=== PATIENT | female | born 1955 | race Caucasian/White ===

== ENCOUNTER → 2017-08-09 | Outpatient (CLI) | payer BC, OTHER ==
[~2017-08-09] MED LIST: CYM30 PO; SIMV20TA2 PO; TRAM-10 PO
[2017-08-09 18:48] LABS: BASO % 0.3 %; BASO ABS # 0.01 K/uL (0-0.2); EOS % 4.4 %; EOS ABS # 0.17 K/uL (0-0.5); HEMATOCRIT 38.6 % (37-47); HEMOGLOBIN 12.8 g/dL (12.0-16.0); LYMPH % 39.7 %; LYMPH ABS # 1.52 K/uL (1.2-3.4); MEAN CELL VOLUME 91.3 fL (80-100); MEAN CORPUSCULAR HEMOGLOBIN 30.3 pg (25-34); MEAN CORPUSCULAR HGB CONC 33.2 g/dl (32-36); MEAN PLATELET VOLUME 10.5 fL (7.4-10.4); MONO % 9.1 %; MONO ABS # 0.35 K/uL (0.11-0.59); NEUT % 46.5 %; NEUT ABS # 1.78 K/uL (1.4-6.5); PLATELET COUNT 282 K/uL (130-400); RED CELL DISTRIBUTION WIDTH CV 13.1 % (11.5-14.5); RED CELL DISTRIBUTION WIDTH SD 43.6 fL (36.4-46.3); WHITE BLOOD COUNT 3.83 K/uL (4.8-10.8)
[2017-08-09 20:52] LABS: ALBUMIN 4.2 gm/dl (3.4-5.0); ALKALINE PHOSPHATASE 63 U/L (45-117); ALT/SGPT 26 U/L (12-78); AST/SGOT 19 U/L (15-37); BLOOD UREA NITROGEN 12 mg/dl (7-18); CALCIUM 9.7 mg/dl (8.5-10.1); CARBON DIOXIDE 29 mmol/L (21-32); CHOLESTEROL 169 mg/dl (0-200); CREATININE 0.69 mg/dl (0.60-1.20); GLUCOSE 86 mg/dl (70-99); LDL CHOLESTEROL CALCULATED 80 mg/dl; SODIUM 136 mmol/L (136-145)
== END | disposition home or self-care (01) ==
LOC: C.LABSPEC 17:50
PROVIDERS: ATTEND Family Medicine
DX: R53.83 Other fatigue (principal); E78.2 Mixed hyperlipidemia; I10 Essential (primary) hypertension

== ENCOUNTER 2022-06-20 09:15 | Observation (INO) ==
--- NOTE | 2022-06-20 09:43 | History & Physical Report ---
Date of Service June 20, 2022 Assessment & Plan (1) Post-polypectomy bleeding: Plan: Proceed with colonoscopy History of Present Illness Chief Complaint: Post-polypectomy bleeding Primary Care Provider: Adilson Betancourt DO 66 yo CF who presents for colonoscopy secondary to post-polypectomy bleeding. Allergies Allergy/AdvReac Type Severity Reaction Status Date / Time fluconazole [From Diflucan] Allergy Mild Rash Verified 06/20/22 09:30 metal Allergy Mild Rash Uncoded 06/20/22 09:30 Home Medications Medication Instructions Recorded Confirmed Type duloxetine 30 mg capsule,delayed 30 mg PO QAM 06/14/22 06/20/22 History release estradiol 10 mcg vaginal tablet 10 mcg vaginal UD 06/14/22 06/20/22 History (Vagifem) levothyroxine 25 mcg tablet 25 mcg PO QAM 06/14/22 06/20/22 History losartan 50 mg tablet 50 mg PO QAM 06/14/22 06/20/22 History rosuvastatin 20 mg tablet 20 mg PO QPM 06/14/22 06/20/22 History ciprofloxacin HCl 500 mg tablet 500 mg PO BID #10 tabs 06/19/22 06/20/22 Rx (Cipro) metronidazole 500 mg tablet 500 mg PO TID #15 tabs 06/19/22 06/20/22 Rx Past Med/Surg History Medical History Depression History of COVID-2020 sinus congestion, no hospitalization, no current issues Hyperlipidemia Hypertension Hypothyroidism Surgical History History of carpal tunnel release of both wrists History of esophagogastroduodenoscopy (EGD) History of right hip replacement Hx of breast implants, bilateral Hx of colonoscopy Hx of tubal ligation Family History Other No family history of adverse response to anesthesia Social History Smoking Status: Never smoker Second Hand Exposure: No; Do You Dip or Chew Tobacco: No; Tobacco Cessation Education Requested by Patient: No Hx Alcohol Use: No Hx Substance Use: No Preferred Language: Kazakh Communication Ability: Effective Audio Engineer Required: No Beliefs That Will Affect Care: None Current Living Situation: Spouse Other Information That Helps Us Care for You: No Feels Safe at Home: Yes Safety Concerns: Feels Safe At This Time Assistive Devices: None Physical Exam Constitutional: WD/WN, vitals as above Respiratory: normal respiratory effort, lungs clear to auscultation Cardiovascular: RRR, no murmur, no edema Gastrointestinal (Abdomen): normal bowel sounds, soft, nontender, no hepatosplenomegaly Coding Level of Care Code None Diagnoses Post-polypectomy bleeding
[2022-06-20] MEDS ORDERED: SODIUM CHLORIDE 0.9% 1000ML 1,000 ML IV SCH (09:45)
--- NOTE | 2022-06-20 11:25 | GI REPORT ---
Addendum Number: 1 Addendum Date: 06/20/2022 12:53:38 PM Due to post-polypectomy bleeding, and decreased H/H, recommend admission for further evaluation. Discussed case with Dr. Luna of the Hospitalist team, who will admit patient. Lucio Reardon DO 06/20/2022 12:56:22 PM This report has been signed electronically. Patient Name: Alicia Reid Procedure Date: 06/20/2022 9:36 AM Date of : 1955 Admit Type: Outpatient Age: 66 Gender: Female Attending MD: Lucio Reardon DO Procedure: Colonoscopy Providers: Lucio Reardon DO Referring MD: Adilson Betancourt MD Indications: Treatment of bleeding from polypectomy site Medicines: None Complications: No immediate complications. Estimated Blood Loss: Estimated blood loss: none. Procedure: Pre-Anesthesia Assessment: - Prior to the procedure, a History and Physical was performed, and patient medications and allergies were reviewed. The patient's tolerance of previous anesthesia was also reviewed. The risks and benefits of the procedure and the sedation options and risks were discussed with the patient. All questions were answered, and informed consent was obtained. Prior Anticoagulants: The patient has taken no previous anticoagulant or antiplatelet agents. After reviewing the risks and benefits, the patient was deemed in satisfactory condition to undergo the procedure. After I obtained informed consent, the scope was passed under direct vision. Throughout the procedure, the patient's blood pressure, pulse, and oxygen saturations were monitored continuously. The Colonoscope was introduced through the anus and advanced to the terminal ileum. The colonoscopy was performed without difficulty. The patient tolerated the procedure well. The patient did not take a bowel prep for this procedure. Findings: The perianal and digital rectal examinations were normal. Stigmata of recent bleeding was seen in the cecum, secondary to previous polypectomy procedure. Area was successfully injected with 2 mL of a 1:10,000 solution of epinephrine for hemostasis. To prevent bleeding post-intervention, six hemostatic clips were successfully placed (MR conditional). There was no bleeding at the end of the procedure. Impression: - Bleeding in the cecum secondary to previous polypectomy. Injected. Clips (MR conditional) were placed. - No specimens collected. Recommendation: - Clear liquid diet. - Continue present medications. - Return to primary care physician as previously scheduled. Lucio TimboAlec Reardon, DO 06/20/2022 11:25:08 AM This report has been signed electronically. Note Initiated On: 06/20/2022 9:36 AM Number of Addenda: 1 I attest to the content of the Intraoperative Record and orders documented therein, exceptions below {[id number]}
[2022-06-20 11:35] LABS: Basophils # (auto) 0.02 K/uL (0-0.2); Basophils % (auto) 0.3 %; Eosinophils # (auto) 0.09 K/uL (0-0.50); Eosinophils % (auto) 1.2 %; Hematocrit (blood only) 33.5 % (34.1-44.9); Immature Granulocytes # (auto) 0.02 K/uL (0.00-0.02); Immature Granulocytes % (auto) 0.3 %; Lymphocytes # (auto) 1.88 K/uL (1.2-3.4); Mean Corpuscular Hemoglobin 29.8 pg (25.0-34.0); Mean Corpuscular Hgb Conc 32.8 g/dL (32.0-36.0); Mean Corpuscular Volume 90.8 fL (80.0-100.0); Monocytes % (auto) 6.9 %; Neutrophils # (auto) 4.71 K/uL (1.4-6.5); Neutrophils % (auto) 65.3 %; Platelet Count 298 K/uL (130-400); RDW Coefficient of Variation 13.7 % (11.5-14.5); RDW Standard Deviation 45.6 fL (36.4-46.3); Red Blood Count 3.69 M/uL (3.93-5.22); White Blood Count 7.22 K/ul (4.8-10.8)
[2022-06-20 11:56] LABS: Albumin Globulin Ratio 1.5 (0.9-2); Albumin Level 4.1 gm/dl (3.4-5.0); BUN Creatinine Ratio 16.4 (10-20); Bilirubin,Total 0.3 mg/dl (0.2-1.0); Creatinine Clr Calc Pharmacy 75.3 ml/min; Est GFR (African American) 104.7 ml/min; Est GFR (Non-African American) 90.3 ml/min; Globulin 2.8 gm/dl (2.5-4.0); Potassium 3.9 mmol/L (3.5-5.1); Total Protein 6.9 gm/dl (6.0-8.3)
--- NOTE | 2022-06-20 12:36 | History & Physical Report ---
Date of Service June 20, 2022 History of Present Illness Chief Complaint: Bleeding during colonoscopy Primary Care Provider: Adilson BetancourtDO Vargas is a 66 year old female with a PMH significant for HTN, hypothyroidism, hyperlipidemia, and depression who presented to the [facility] endo suite today due to rectal bleeding S/P routine colonoscopy for cancer screening yesterday with Dr. Reardon. Per chart review and discussions with the GI team, the patient underwent routine screening colonoscopy yesterday. The patient tolerated the procedure well yesterday and was discharged home. She noticed rectal bleeding and was brought back to the OR today for repeat colonoscopy. Per the procedure report and GI, they found stigmatat of recent bleeding in the cecum secondary to her polypectomy yesterday. They injected the area with epinephrine for hemostasis and also placed 6 hemostatic clips as well. The patient tolerated the procedure well and remained stable throughout. The patient remained afebrile, hemodynamically stable, and stable on RA post- op. Labs were remarkable for a Hgb of 11.0, last Hgb was 12.4 from 06/19/2020 and CMP WNL. Allergies Allergy/AdvReac Type Severity Reaction Status Date / Time fluconazole [From Diflucan] Allergy Mild Rash Verified 06/20/22 09:30 metal Allergy Mild Rash Uncoded 06/20/22 09:30 Home Medications Medication Instructions Recorded Confirmed Type duloxetine 30 mg capsule,delayed 30 mg PO QAM 06/14/22 06/20/22 History release estradiol 10 mcg vaginal tablet 10 mcg vaginal UD 06/14/22 06/20/22 History (Vagifem) levothyroxine 25 mcg tablet 25 mcg PO QAM 06/14/22 06/20/22 History losartan 50 mg tablet 50 mg PO QAM 06/14/22 06/20/22 History rosuvastatin 20 mg tablet 20 mg PO QPM 06/14/22 06/20/22 History ciprofloxacin HCl 500 mg tablet 500 mg PO BID #10 tabs 06/19/22 06/20/22 Rx (Cipro) metronidazole 500 mg tablet 500 mg PO TID #15 tabs 06/19/22 06/20/22 Rx Past Med/Surg History Medical History Depression History of COVID-2020 sinus congestion, no hospitalization, no current issues Hyperlipidemia Hypertension Hypothyroidism Surgical History History of carpal tunnel release of both wrists History of esophagogastroduodenoscopy (EGD) History of right hip replacement Hx of breast implants, bilateral Hx of colonoscopy Hx of tubal ligation Family History Other No family history of adverse response to anesthesia Social History Smoking Status: Never smoker Second Hand Exposure: No; Do You Dip or Chew Tobacco: No; Tobacco Cessation Education Requested by Patient: No Hx Alcohol Use: No Hx Substance Use: No Preferred Language: Lebanese Communication Ability: Effective Safety Engineer Required: No Beliefs That Will Affect Care: None Current Living Situation: Spouse Other Information That Helps Us Care for You: No Feels Safe at Home: Yes Safety Concerns: Feels Safe At This Time Assistive Devices: None Results & Data Results & Data ([facility]) Vital Signs (Past 12 Hours) Vital Signs Temp Pulse Pulse Resp BP BP Pulse Ox 06/20/22 12:03 84 20 145/82 H 98 06/20/22 11:48 76 18 137/82 98 06/20/22 11:33 80 18 143/96 H 100 06/20/22 11:24 72 16 142/74 H 100 06/20/22 11:10 77 20 142/68 H 100 06/20/22 11:05 79 19 135/100 100 06/20/22 11:00 72 12 157/72 H 100 06/20/22 10:55 73 19 142/90 H 100 06/20/22 10:50 74 17 134/80 100 06/20/22 10:45 80 17 131/76 100 06/20/22 10:40 77 15 132/73 100 06/20/22 10:35 79 17 131/71 100 06/20/22 10:30 80 20 130/71 100 06/20/22 10:25 79 16 128/73 100 06/20/22 10:20 73 17 113/68 100 06/20/22 10:15 72 17 87/56 L 100 06/20/22 10:10 70 13 108/65 100 06/20/22 10:05 81 18 128/78 98 06/20/22 10:00 89 21 149/90 H 100 06/20/22 09:54 84 18 127/73 100 06/20/22 09:49 83 14 136/75 94 06/20/22 09:40 37.2 C 88 16 131/81 98 O2 Del Method O2 Flow Rate 06/20/22 12:03 Room Air 06/20/22 11:48 Room Air 06/20/22 11:33 Room Air 06/20/22 11:24 Room Air 06/20/22 11:10 2 06/20/22 11:05 2 06/20/22 11:00 2 06/20/22 10:55 2 06/20/22 10:50 2 06/20/22 10:45 2 06/20/22 10:40 2 06/20/22 10:35 2 06/20/22 10:30 2 06/20/22 10:25 2 06/20/22 10:20 2 06/20/22 10:15 2 06/20/22 10:10 2 06/20/22 10:05 2 06/20/22 10:00 2 06/20/22 09:54 2 06/20/22 09:49 2 06/20/22 09:40 Room Air PG Care Time/CCT Total # of Minutes Spent Total Time Spent with Patient: Total time spent is greater than 50% in coordination of care (as documented) at patient's floor/unit and/or counseling patient: Coding
--- NOTE | 2022-06-20 12:54 | History & Physical Report ---
Date of Service June 20, 2022 Assessment & Plan (1) Post-polypectomy bleeding: Plan: -Admit to med/surge -Patient is currently afebrile, hemodynamically stable, and stable on RA -Patient experienced significant GI bleed after her polypectomy yesterday with GI. Underwent another colonoscopy today to control bleed, patient tolerated the procedure well. GI asked us to admit overnight to monitor vitals and H&H. -Hgb today is 11.0, last Hgb was at 12.4 in 2019 -Will monitor H&H q8h, transfuse for Hgb less than 7 -Per GI, start with clear liquid diet -Will order type & screen, Blood consent obtained at the time of admission -Will continue Cipro and Flagyl already ordered by GI -Will use SCDs for DVT PPX, hold chemical PPX for now with recent GI bleed -AM BMP (2) Hypothyroidism: Plan: -Continue levothyroxine (3) Hypertension: Plan: -Will hold losartan for now to ensure she remains hemodynamically stable with recent GI bleed (4) Hyperlipidemia: Plan: -Continue Crestor (5) Depression: Plan: -Continue Duloxetine Plan The patient was seen with and discussed with Dr. Ann at the time of the admission History of Present Illness Chief Complaint: Rectal bleed S/P colonoscopy/Polpyectomy Primary Care Provider: DO Alicia Sam is a 66 year old female with a PMH significant for HTN, hypothyroidism, hyperlipidemia, and depression who presented to the [facility] endo suite today due to rectal bleeding S/P routine colonoscopy for cancer screening yesterday with Dr. Reardon. Per chart review and discussions with the GI team, the patient underwent routine screening colonoscopy yesterday. The patient tolerated the procedure well yesterday and was discharged home. She noticed rectal bleeding and was brought back to the OR today for repeat colonoscopy. Per the procedure report and GI, they found stigmata of recent bleeding in the cecum secondary to her polypectomy yesterday. They injected the area with epinephrine for hemostasis and also placed 6 hemostatic clips as well. The patient tolerated the procedure well and remained stable throughout. The patient remained afebrile, hemodynamically stable, and stable on RA post-op. Labs were remarkable for a Hgb of 11.0, last Hgb was 12.4 from 06/19/2020 and CMP WNL. At the time of the exam the patient was resting comfortably in the endoscopy recovery suite with her sitting bedside. The patient was hemodynamically stable and had no complaints at the time of my exam besides. She states that she had a small amount of blood yesterday evening when she had a bowel movement at home. This mooring, she had a large bloody bowel movement which is what caused her to call GI. She denies any fevers, chills, headache, changes in vision, hearing, tatse, and smell, chest pain, SOB, lightheadedness, dizziness, abdominal pain, nausea, vomiting, dysuria, hematuria, and recent falls. We discussed and went over a blood consent form in case she would need a blood transfusion this admission. I spoke to her regarding code status, she is a Full Code. Her would make decisions for her if she could not make them herself. Please refer to Dr. Ramos's attestation for any changes to the treatment plan Allergies Allergy/AdvReac Type Severity Reaction Status Date / Time fluconazole [From Diflucan] Allergy Mild Rash Verified 06/20/22 09:30 metal Allergy Mild Rash Uncoded 06/20/22 09:30 Home Medications Medication Instructions Recorded Confirmed Type duloxetine 30 mg capsule,delayed 30 mg PO QAM 06/14/22 06/20/22 History release estradiol 10 mcg vaginal tablet 10 mcg vaginal UD 06/14/22 06/20/22 History (Vagifem) levothyroxine 25 mcg tablet 25 mcg PO QAM 06/14/22 06/20/22 History losartan 50 mg tablet 50 mg PO QAM 06/14/22 06/20/22 History rosuvastatin 20 mg tablet 20 mg PO QPM 06/14/22 06/20/22 History ciprofloxacin HCl 500 mg tablet 500 mg PO BID #10 tabs 06/19/22 06/20/22 Rx (Cipro) metronidazole 500 mg tablet 500 mg PO TID #15 tabs 06/19/22 06/20/22 Rx Past Med/Surg History Medical History (Updated 06/20/22 @ 12:57 by Laci Corrigan PA-C) Depression History of COVID-2020 sinus congestion, no hospitalization, no current issues Hyperlipidemia Hypertension Hypothyroidism Surgical History History of carpal tunnel release of both wrists History of esophagogastroduodenoscopy (EGD) History of right hip replacement Hx of breast implants, bilateral Hx of colonoscopy Hx of tubal ligation Family History Other No family history of adverse response to anesthesia Social History Smoking Status: Never smoker Second Hand Exposure: No; Do You Dip or Chew Tobacco: No; Tobacco Cessation Education Requested by Patient: No Hx Alcohol Use: No Hx Substance Use: No Preferred Language: Bengali Communication Ability: Effective Principal Java Developer Required: No Beliefs That Will Affect Care: None Current Living Situation: Spouse Other Information That Helps Us Care for You: No Feels Safe at Home: Yes Safety Concerns: Feels Safe At This Time Assistive Devices: None Review of Systems Review of Systems: Denies current fever, chills, headache, changes in vision, hearing, taste, and smell, chest pain, SOB, cough, abdominal pain, nausea, vomiting, hematemesis, melena, dysuria, hematuria, and recent falls. All systems have been reviewed and are otherwise negative. Physical Exam Physical Exam: Physical Exam: General: In no acute distress, stated age, well-nourished, good hygiene HEENT: Normocephalic, atraumatic, no scleral icterus, pupils around round, symmetrical, and reactive to light, moist mucus membranes, trachea midline, no thyromegaly Chest/Pulm: No respiratory distress, symmetrical chest expansion, clear breath sounds throughout Cardiac: RRR, no murmurs noted Abdomen: Negative for ascites and bruising, normoactive bowel sounds, soft, non-tender to palpation throughout Musculoskeletal: Symmetrical and without signs of acute trauma, upper and lower extremities with full ROM, no atrophy, spasticity, or flaccidity Extremities: Radial, dorsalis pedis, and posterior tibial pulses are intact and symmetrical, no edema noted in the BL LE's Skin: Warm, dry, no rashes , lesions, or scars noted Neuro: Alert and oriented to person, place, month, year, and president, no focal defects, CN II-XII tested and intact, finger to nose test negative, no tremors noted Psych: No acute distress, calm and cooperative during the exam Results & Data Results & Data ([facility]) Vital Signs (Past 12 Hours) Vital Signs Temp Pulse Pulse Resp BP BP Pulse Ox 06/20/22 12:29 76 20 145/89 H 98 06/20/22 12:03 84 20 145/82 H 98 06/20/22 11:48 76 18 137/82 98 06/20/22 11:33 80 18 143/96 H 100 06/20/22 11:24 72 16 142/74 H 100 06/20/22 11:10 77 20 142/68 H 100 06/20/22 11:05 79 19 135/100 100 06/20/22 11:00 72 12 157/72 H 100 06/20/22 10:55 73 19 142/90 H 100 06/20/22 10:50 74 17 134/80 100 06/20/22 10:45 80 17 131/76 100 06/20/22 10:40 77 15 132/73 100 06/20/22 10:35 79 17 131/71 100 06/20/22 10:30 80 20 130/71 100 06/20/22 10:25 79 16 128/73 100 06/20/22 10:20 73 17 113/68 100 06/20/22 10:15 72 17 87/56 L 100 06/20/22 10:10 70 13 108/65 100 06/20/22 10:05 81 18 128/78 98 06/20/22 10:00 89 21 149/90 H 100 06/20/22 09:54 84 18 127/73 100 06/20/22 09:49 83 14 136/75 94 06/20/22 09:40 37.2 C 88 16 131/81 98 O2 Del Method O2 Flow Rate 06/20/22 12:29 Room Air 06/20/22 12:03 Room Air 06/20/22 11:48 Room Air 06/20/22 11:33 Room Air 06/20/22 11:24 Room Air 06/20/22 11:10 2 06/20/22 11:05 2 06/20/22 11:00 2 06/20/22 10:55 2 06/20/22 10:50 2 06/20/22 10:45 2 06/20/22 10:40 2 06/20/22 10:35 2 06/20/22 10:30 2 06/20/22 10:25 2 06/20/22 10:20 2 06/20/22 10:15 2 06/20/22 10:10 2 06/20/22 10:05 2 06/20/22 10:00 2 06/20/22 09:54 2 06/20/22 09:49 2 06/20/22 09:40 Room Air Laboratory Results Laboratory Results - last 24 hr 06/20/22 06/20/22 11:25 11:25 WBC 7.22 RBC 3.69 L Hgb 11.0 L Hct 33.5 L MCV 90.8 MCH 29.8 MCHC 32.8 RDW Std Deviation 45.6 RDW Coeff of [place] 13.7 Plt Count 298 MPV 10.0 Immature Gran % (Auto) 0.3 Neut % (Auto) 65.3 Lymph % (Auto) 26.0 [place] % (Auto) 6.9 Eos % (Auto) 1.2 Baso % (Auto) 0.3 Neut # (Auto) 4.71 Lymph # (Auto) 1.88 [place] # (Auto) 0.50 Eos # (Auto) 0.09 Baso # (Auto) 0.02 Immature Gran # (Auto) 0.02 Sodium 137 Potassium 3.9 Chloride 106 Carbon Dioxide 27 Anion Gap 4 BUN 11 Creatinine 0.67 Est Cr Clr Drug Dosing 75.3 Est GFR ( Amer) 104.7 Est GFR (Non-Af Amer) 90.3 BUN/Creatinine Ratio 16.4 Glucose 161 H Calcium 9.0 Total Bilirubin 0.3 AST 18 ALT 15 Alkaline Phosphatase 72 Total Protein 6.9 Albumin 4.1 Globulin 2.8 Albumin/Globulin Ratio 1.5 Code Status & VTE Plan Code Status Full code Supervising Physician Co-Signing Physician Notes Patient seen and examined, chart reviewed, case discussed with Laci Corrigan PA-C and I agree with the assessment and plan as above except as otherwise noted Labs and images reviewed 66-year-old female with history of hypothyroidism, hypertension, hyperlipidemia who presents as a direct admission after colonoscopy with polypectomy resulting in subsequent bleeding, colonoscopy performed the next day with visible vessels which were clipped as noted in GI documentation. Patient is recommended for admission for overnight observation. Hemodynamically stable, no tachycardia, no hypotension. Feels well. Has had a bowel movement today with some blood. No prior bleeding problems. No chest pain, chest pressure, lightheadedness, dizziness, shortness of breath. Abdomen is minimally tender, heart rate is regular, breathing is unlabored. Agree with admission as above, given stability and no underlying medical comorbidity will follow on MedSurg with trended H&H. Management as above. PG Care Time/CCT Total # of Minutes Spent Total Time Spent with Patient: Total time spent is greater than 50% in coordination of care (as documented) at patient's floor/unit and/or counseling patient: Coding Level of Care Code Established Pt INT OBSERVATION CARE 50M LVL 2 Patient Type Established Medical Decision Making Moderate Complexity Diagnoses Post-polypectomy bleeding Hypothyroidism E03.9 Hypertension I10 Hyperlipidemia E78.5 Depression F32.A
[2022-06-20] MEDS ORDERED: ACETAMINOPHEN 325 MG TAB PO PRN (15:40)
--- NOTE | 2022-06-20 16:00 | Billing Data ---
Date of Service June 20, 2022 Coding Level of Care Code 11254 Office/OBS Consult Lvl 3
[2022-06-20 17:27] LABS: Hematocrit (blood only) 31.1 % (34.1-44.9); Hemoglobin 10.5 g/dl (12.0-16.0)
[2022-06-20] MEDS: metroNIDAZOLE 500 MG TAB PO SCH ×2 (17:43→23:53)
[2022-06-20] MEDS: CIPROFLOXACIN 500 MG TAB PO SCH (20:24)
[2022-06-20] MEDS ORDERED: ROSUVASTATIN CALCIUM 20 MG TAB PO SCH (21:00)
--- NOTE | 2022-06-20 22:23 | Consultation Report ---
GASTROENTEROLOGY CONSULTATION SEX: Female. RACE: . ATTENDING PHYSICIAN: Dr. Ann. CONSULTING PHYSICIAN: Dr. Reardon. REASON FOR CONSULTATION: Acute blood loss anemia post-polypectomy bleeding. HISTORY OF PRESENT ILLNESS: Alicia Reid is a pleasant 66-year-old female who presented to [facility] outpatient endoscopy center on 06/19/2022 for a colonoscopy secondary to screening. During the col onoscopy, she was found to have two large cecal polyps measuring between 1.6 and 3.6 cm. The larger of the 2 polyps was removed via a saline injection lift technique followed by piecemeal polypectomy a nd the 60 mm polyp was removed with hot snare. There was no bleeding noted at the time of the patien t's completion of the procedure and she was discharged home in stable condition. She contacted the G I lab this morning with complaints of multiple episodes of bright red blood per rectum overnight and passage of clots. She was advised to present to the hospital and register for repeat colonoscopy, wh ich she did early this morning. She did undergo a repeat colonoscopy today and was noted to have stig gutierrez of recent bleeding at both of her polypectomy sites and a total of 6 hemostatic Endoclips were p laced on the location with no bleeding noted at the completion of the procedure. Decision was made a fter repeat H and H showed a decline in her hemoglobin to 11.0 and her hematocrit was 33.5. The juanita ent was in agreement with the plan. I did contact Dr. Ann and discussed this case with him and h e agreed that the patient should be admitted to med/surg for further evaluation. PAST MEDICAL HISTORY: Significant for hypertension, hyperlipidemia, depression, brachial plexopathy, carpal tunnel syndrome, hypothyroidism. PAST SURGICAL HISTORY: Includes a right hip replacement, breast augmentation and a history of tubal ligation. ALLERGIES: INCLUDE DIFLUCAN. MEDICATIONS: At present include Cipro 500 mg p.o. every 8 hours, Flagyl 500 mg p.o. b.i.d., levothyr oxine 25 mcg p.o. q.a.m., Cymbalta 30 mg p.o. q.a.m., Tylenol 650 mg p.o. every 4 hours p.r.n., Crest or 20 mg p.o. q.p.m. SOCIAL HISTORY: She is . She denies any tobacco history or illicit drug use. FAMILY HISTORY: Negative for GI malignancy or inflammatory bowel disease. REVIEW OF SYSTEMS: Negative x12 system review other than pertinent positives listed in the HPI. PHYSICAL EXAMINATION: VITAL SIGNS: Include a temperature of 37.2, pulse 96, respirations 20, blood pressure 131/77, pulse ox 98% on room air. GENERAL: She is awake and cooperative, in no acute distress. HEENT: Head normocephalic, atraumatic. EYES: Pupils equal, round. Extraocular muscles are intact. ENT: External evaluation of ears and nose are normal. Oropharynx clear. NECK: Soft, supple. No JVD or lymphadenopathy. CHEST: Clear to auscultation bilaterally. CARDIOVASCULAR SYSTEM: Regular rate and rhythm. ABDOMEN: Soft, nontender, nondistended, positive bowel sounds. There is no hepatosplenomegaly or st igmata of chronic liver disease. EXTREMITIES: No clubbing, cyanosis, or edema. LABORATORY STUDIES: Reviewed in the HPI. IMPRESSION: Ms. Reid is a pleasant 66-year-old female who presented following colonoscopy with post-polypectomy bleeding and acute blood loss anemia. PLAN: At the present time, I would recommend that she be continued on Cipro 500 mg p.o. b.i.d. and F lagyl 500 mg p.o. t.i.d. for a total of 5 days. I would also recommend that she be monitored for any signs of acute GI blood loss as there is approximately a 10-15% risk of rebleeding and I would recom mend continuing supportive care at the present time. I will follow her clinical course. I will keep her on clear liquids tonight and if she is doing well tomorrow, we will advance her diet. I will kody e further recommendations at that time. Once again, thanks for allowing me to participate in the care of this patient. If you have any furth er questions, please do not hesitate to contact me. Job ID: [id number]
--- NOTE | 2022-06-20 23:53 | Communication Note ---
Date of Service: June 20, 2022 Transfer of service requested by [facility] hospitalist, Dr. Arellano. Patient PCP is [facility] independent PCP from [facility].
[2022-06-21 01:26] LABS: Hemoglobin 9.3 g/dl (12.0-16.0)
[2022-06-21] MEDS: metroNIDAZOLE 500 MG TAB PO SCH (07:41)
[2022-06-21] MEDS: CIPROFLOXACIN 500 MG TAB PO SCH (07:43)
[2022-06-21] MEDS ORDERED: DULoxetine HCL 30 MG CAP PO SCH (09:00)
[2022-06-21] MEDS ORDERED: LOSARTAN POTASSIUM 50 MG TAB PO SCH (09:00)
[2022-06-21] MEDS ORDERED: LEVOTHYROXINE SODIUM 25 MCG TABLET PO SCH (09:00)
[2022-06-21 09:10] LABS: Hematocrit (blood only) 30.1 % (34.1-44.9)
[2022-06-21 09:33] LABS: BUN Creatinine Ratio 7.4 (10-20); Calcium 8.8 mg/dl (8.5-10.1); Creatinine Clr Calc Pharmacy 68.4 ml/min; Est GFR (African American) 104.2 ml/min; Est GFR (Non-African American) 89.9 ml/min; Potassium 3.5 mmol/L (3.5-5.1)
--- NOTE | 2022-06-21 10:01 | Gastroenterology Progress Note ---
Date of Service June 21, 2022 Assessment & Plan (1) Post-polypectomy bleeding: Plan -Advance diet to low fiber diet as tolerated. -Complete a 5 day course of antibiotics as prescribed. -Stable for discharge from GI perspective. -No lifting or exercise for 2 weeks. Admission and Anticipated Discharge Date Admission Date: June 20, 2022 Supervising Physician Co-Signing Physician Notes Agree with ANITA Lindquist as above Abd: Soft, NT, ND, +BS Continue current therapy and supportive care Complete 5 days of Cipro and Flagyl therapy Repeat colonoscopy in 1 year. Subjective Patient reports feeling well this morning. S/P colonoscopy yesterday with Endoclip hemostasis for post-polypectomy bleed. She did report passing a few clots this morning but H&H improved from 0100 to 10.0/30.1. No abdominal pain or other GI complaints. Review of Systems Constitutional: no fever and no chills Gastrointestinal: as per Subjective / HPI Physical Exam Constitutional: WD/WN, vitals as above Respiratory: normal respiratory effort, lungs clear to auscultation Cardiovascular: RRR, no murmur, no edema Gastrointestinal (Abdomen): normal bowel sounds, soft, nontender, no hepatosplenomegaly Psychiatric: A+Ox3, euthymic affect Results & Data Results & Data ([facility]) Vital Signs (Past 12 Hours) Vital Signs Temp Pulse Resp BP BP Pulse Ox O2 Del Method 06/21/22 07:47 36.6 C 78 16 133/71 96 Room Air 06/20/22 22:58 36.7 C 84 16 119/71 96 Room Air Diagnostic Findings Abnormal lab results 06/20/22 06/20/22 06/20/22 Range/Units 11:25 11:25 16:58 RBC 3.69 L (3.93-5.22) M/uL Hgb 11.0 L 10.5 L (12.0-16.0) g/dl Hct 33.5 L 31.1 L (34.1-44.9) % BUN (6-23) mg/dl BUN/Creatinine Ratio (10-20) Glucose 161 H (70-99(Fasting)) mg/dl 06/21/22 06/21/22 06/21/22 Range/Units 01:13 08:53 08:53 RBC (3.93-5.22) M/uL Hgb 9.3 L 10.0 L (12.0-16.0) g/dl Hct 28.0 L 30.1 L (34.1-44.9) % BUN 5 L (6-23) mg/dl BUN/Creatinine Ratio 7.4 L (10-20) Glucose 168 H (70-99(Fasting)) mg/dl PG Care Time/CCT Total # of Minutes Spent Total Time Spent with Patient: Total time spent is greater than 50% in coordination of care (as documented) at patient's floor/unit and/or counseling patient: Coding Level of Care Code 63012 Subseq Hosp Care Lvl 3 Diagnoses Post-polypectomy bleeding
--- NOTE | 2022-06-21 16:29 | Hospitalist Progress Note ---
Date of Service June 21, 2022 Assessment & Plan (1) Post-polypectomy bleeding: Plan: Per admitting service notes with addendum: (1) Post-polypectomy bleeding: Plan: -No recurrence of hematochezia Hemoglobin remained stable around 10 Continue antibiotics for 5 more days per GI, Cipro and Flagyl changed to Augmentin in light of patient's concomitant use of Cymbalta Follow-up with GI as scheduled Follow-up with PCP in 1 week Repeat CBC on follow-up visit with primary care physician (2) Hypothyroidism: Plan: -Continue levothyroxine (3) Hypertension: Plan: Resume losartan (4) Hyperlipidemia: Plan: -Continue Crestor (5) Depression: Plan: -Continue Duloxetine Admission and Anticipated Discharge Date Admission Date: June 20, 2022 Subjective Follow-up for rectal bleeding after polypectomy, etc. Seen resting in bed, comfortable, in good spirits States that she feels fine overall No abdominal pain, recurrence of hematochezia No nausea vomiting or fevers or chills no chest pain, dyspnea, palpitations, dizziness No other symptoms States that she is ready and ready for discharge today Review of Systems Review of Systems: all noted and negative except for above Physical Exam Physical Exam: General- oriented x 3, not in distress, speaks in sentences with no effort or accessory muscle use Eyes- anicteric Neck- no JVD Lungs- clear breath sounds bilaterally, no rales/wheezes Heart- normal rate, regular rhythm; no murmurs Abdomen- normal bowel sounds, nondistended, soft, nontender Extremities- no pretibial edema, no calf tenderness Neuro- alert, oriented x 3; no gross focal neurologic deficits Skin- warm & dry Results & Data Results & Data ([facility]) Vital Signs (Past 12 Hours) Vital Signs Temp Pulse Resp BP BP Pulse Ox O2 Del Method 06/21/22 12:21 36.6 C 78 16 133/71 119/71 96 06/21/22 07:47 36.6 C 78 16 133/71 96 Room Air all noted and reviewed including below
--- NOTE | 2022-06-21 16:30 | Discharge Summary ---
Discharge Summary Date of Service June 21, 2022 Notes For Next Care Provider Repeat CBC on follow-up visit with primary care physician in 1 week post discharge Medication Changes From Visit Augmentin 875 mg twice daily x5 days Admission HPI Per Admitting Provider Alicia is a 66 year old female with a PMH significant for HTN, hypothyroidism, hyperlipidemia, and depression who presented to the [facility] endo suite today due to rectal bleeding S/P routine colonoscopy for cancer screening yesterday with Dr. Reardon. Per chart review and discussions with the GI team, the patient underwent routine screening colonoscopy yesterday. The patient tolerated the procedure well yesterday and was discharged home. She noticed rectal bleeding and was brought back to the OR today for repeat colonoscopy. Per the procedure report and GI, they found stigmata of recent bleeding in the cecum secondary to her polypectomy yesterday. They injected the area with epinephrine for hemostasis and also placed 6 hemostatic clips as well. The patient tolerated the procedure well and remained stable throughout. The patient remained afebrile, hemodynamically stable, and stable on RA post-op. Labs were remarkable for a Hgb of 11.0, last Hgb was 12.4 from 06/19/2020 and CMP WNL. At the time of the exam the patient was resting comfortably in the endoscopy recovery suite with her sitting bedside. The patient was hemodynamically stable and had no complaints at the time of my exam besides. She states that she had a small amount of blood yesterday evening when she had a bowel movement at home. This mooring, she had a large bloody bowel movement which is what caused her to call GI. She denies any fevers, chills, headache, changes in vision, hearing, tatse, and smell, chest pain, SOB, lightheadedness, dizziness, abdominal pain, nausea, vomiting, dysuria, hematuria, and recent falls. We discussed and went over a blood consent form in case she would need a blood transfusion this admission. I spoke to her regarding code status, she is a Full Code. Her would make decisions for her if she could not make them herself. Please refer to Dr. Ramos's attestation for any changes to the treatment plan Principal Dx & Hospital Course #1 = Principal Diagnosis (1) Post-polypectomy bleeding: Per admitting service notes with addendum: (1) Post-polypectomy bleeding: Plan: -No recurrence of hematochezia Hemoglobin remained stable around 10 Continue antibiotics for 5 more days per GI, Cipro and Flagyl changed to Augmentin in light of patient's concomitant use of Cymbalta Follow-up with GI as scheduled Follow-up with PCP in 1 week Repeat CBC on follow-up visit with primary care physician (2) Hypothyroidism: Plan: -Continue levothyroxine (3) Hypertension: Plan: Resume losartan (4) Hyperlipidemia: Plan: -Continue Crestor (5) Depression: Plan: -Continue Duloxetine Discharge Exam General- oriented x 3, not in distress, speaks in sentences with no effort or accessory muscle use Eyes- anicteric Neck- no JVD Lungs- clear breath sounds bilaterally, no rales/wheezes Heart- normal rate, regular rhythm; no murmurs Abdomen- normal bowel sounds, nondistended, soft, nontender Extremities- no pretibial edema, no calf tenderness Neuro- alert, oriented x 3; no gross focal neurologic deficits Skin- warm & dry Updated Medication List Medication Instructions Recorded Confirmed Type duloxetine 30 mg capsule,delayed 30 mg PO QAM 06/14/22 06/20/22 History release estradiol 10 mcg vaginal tablet 10 mcg vaginal UD 06/14/22 06/20/22 History (Vagifem) levothyroxine 25 mcg tablet 25 mcg PO QAM 06/14/22 06/20/22 History losartan 50 mg tablet 50 mg PO QAM 06/14/22 06/20/22 History rosuvastatin 20 mg tablet 20 mg PO QPM 06/14/22 06/20/22 History amoxicillin 875 mg-potassium 1 tab PO BID 5 days #10 tabs 06/21/22 Rx clavulanate 125 mg tablet Hospital Stay Data Consultations 06/20/22 15:40 Consult Gastroenterology Routine Procedures Performed Operation Date: 06/20/22 13:00 Actual Procedures p Colonoscopy Hemostasis - Lucio Reardon, DO Pending Results Patient Have Any Pending Studies at Discharge: Yes Discharge Instructions Given to Patient (Per Discharging Provider) PLEASE REFER TO YOUR NEW MEDICATION LIST AND FOLLOW INSTRUCTIONS CAREFULLY. YOUR NEW MEDICATIONS INCLUDE: Augmentin-to prevent infection from rectal bleeding Do not use medications under the class of NSAIDs such as ibuprofen, naproxen, etc. until allowed by your primary care physician or infection prevention practitioner. PLEASE CALL YOUR PRIMARY CARE PHYSICIAN OR RETURN TO THE ER IF WITH WORSENING OF SYMPTOMS, INCLUDING Blood in your stools, abdominal pain, nausea/vomiting, dizziness, weakness, chest pain, shortness of breath, etc. FOLLOW UP WITH PRIMARY CARE PHYSICIAN in 1 week. FOLLOW-UP WITH [employer] SCHEDULED. Total Time Total Time Spent Total Time Spent (In Minutes): >30 minutes
== END 2022-06-21 12:13 | disposition home or self-care (01) ==
LOC: ENDO 09:15 → 3W 09:15 → SUATTDRO 12:53